=== PATIENT | female | born 1960 | race Caucasian/White ===

== ENCOUNTER 2017-08-08 18:08 | Emergency (ER) | payer MEDICAID, BC | END 2017-08-08 18:29 | disposition home or self-care (01) | LOC: E/R 18:08 | DX: J32.9 Chronic sinusitis, unspecified (principal) | CPT/HCPCS: 99283; Z7502 ==

== ENCOUNTER 2017-10-11 10:47 | Emergency (ER) | payer OTHER, MEDICAID | END 2017-10-11 13:25 | disposition home or self-care (01) | LOC: FTE 10:47 | DX: L03.031 Cellulitis of right toe (principal); L60.0 Ingrowing nail | CPT/HCPCS: 99283 ==